=== PATIENT | female | born 1940 | race Caucasian/White ===

== ENCOUNTER 2016-10-03 12:19 | Observation (INO) ==
[2016-10-03] MEDS ORDERED: ASPIRIN 325 MG TABLET PO STA (12:37)
[2016-10-03] MEDS ORDERED: ALUM/MAG/SIMETH/LIDO VISC 1:1 30 ML BOTTLE PO STA (12:37)
[2016-10-03] MEDS ORDERED: ENOXAPARIN 100 MG/ML SYRINGE SUBCUT STA (12:37)
[2016-10-03] MEDS ORDERED: NITROGLYCERIN SL 0.4 MG TABLET SL PRN (12:37)
[2016-10-03] MEDS ORDERED: NITROGLYCERIN 2% OINT 1 INCH/GM PACK TOP STA (12:37)
--- NOTE | 2016-10-03 12:39 | EKG Report ---
Stationary ECG Study [facility] ER Test Date: 10/03/2016 12:31:41 PM Pat Name: MARIANNA MCKEON Department: Room: Gender: F Supervisory Lifeguard: Cuca Levy : 1940 Requested by: Gera Guerra Order Number: [id number] Reading MD: HANNAH HUNG Intervals [place] Rate: 61 P: 74 FL: 168 QRS: 59 QRSD: 98 T: 71 QT: 402 QTc: 405 Interpretive Statements SINUS RHYTHM Electronically Signed On 10-03-16 17:04:47 CDT by HANNAH HUNG [email or web address]
--- NOTE | 2016-10-03 12:43 | Emergency Department Note ---
Laz Duarte Hilary, am scribing for, and in the presence of, Gera Mederos MD 12: 39. Rosa M Duarte James D, MD, personally performed the services described in this documentation, ascribed by Virgen Nesbitt in my presence, and it is both accurate and complete . Arrival - Arrival Chief Complaint: Chest Pain Stated Complaint: cp,high blood pressure ED Nursing Triage Note: Pt c/o Chest pain and SOB x 2-3 wks Mode of Arrival: Ambulatory Limitations: No Limitations Source: Patient, RN Notes Reviewed Time Seen by Provider: 10/03/16 12:32 - History of Present Illness HPI Narrative: Pt is a 76 y/o white female presenting to the ED with c/o chest pain which onset 2-3 weeks ago. Pt confirms chest pain that radiates through her shoulder intermittently, SOB, SOB when she lies flat, and fatigue but denies diaphoresis , rash or nausea. Pt reports that she has had about 4 deaths in the family this recently and feels like she has "a lot of stress". No other complaints or problems stated in the ED. Onset (ago): week(s) (3) Consistency: intermittent Severity: moderate Allergies/Adverse Reactions: Allergies Allergy/AdvReac Type Severity Reaction Status Date / Time Penicillins Allergy Swelling Verified 10/03/16 12:25 of Lip/Tongue/Throat morphine AdvReac Nausea Verified 10/03/16 12:25 Home Medications: Home Medications Medication Instructions Recorded Confirmed Type Lovastatin 20 mg PO BEDTIME 10/03/16 10/03/16 History Mv-Min/FA/Vit K/Lycop/Lut/Zeax 1 each PO DAILY 10/03/16 10/03/16 History [Ocuvite Eye + Multi Tablet] Sertraline [Zoloft] 25 mg PO QAM 10/03/16 10/03/16 History Review of System - Review of System 12 point system: reviewed and no additional remarkable complaints except as stated - Review of System Constitutional: Absent: fever Respiratory: Present: respiratory distress (SOB) Cardiovascular: Present: chest pain Gastrointestinal: Absent: abdominal pain, nausea Endocrine: Present: fatigue Medical,Surgical,& Family Hx - Medical History Endocrine: History of: Dyslipidemia - Social History Smoking Status: Never smoker Exam Physical Examination: GENERAL: This is a well-nourished, well-developed in no apparent distress. VITAL SIGNS: Temperature:98.7 Pulse: 62 Respiratory: 18 Blood Pressure: 140/ 67 O2Sat: 97 HEENT: Head is normocephalic and atraumatic. Pupils are equally round and reactive to light. Extraocular movement are intact. Oropharynx is benign with moist mucous membranes. NECK: Neck is soft and supple without tenderness. There are no masses. There is no lymphadenopathy. LUNGS: Lungs are clear to auscultation bilaterally. Chest rises symmetrically. There is no chest wall tenderness. CV: Heart is regular rate and rhythm without murmurs, rubs, or gallops. ABDOMEN: Abdomen is soft, non-tender to palpation. There are no abnormal masses palpated. There is no organomegaly. Bowel sounds are present and active. SKIN: Skin is warm and dry. No rash. EXTREMITIES: Patient has full range of motion without tenderness. There is no pedal edema. NEUROLOGIC: Awake, alert, and oriented x4. Cranial nerves II through XII are grossly intact. There are no motorsensory deficits. PSYCHIATRIC: Normal affect. Normal mood. Vital Signs: Vital Signs Temperature 98.7 F 10/03/16 12:29 Pulse Rate 62 10/03/16 12:29 Respiratory Rate 18 10/03/16 12:29 Blood Pressure 140/67 10/03/16 12:29 O2 Sat by Pulse Oximetry 97 10/03/16 12:29 Course - Consultations Consultation #1: Discussed with Dr. Watson. Initial orders written for him. Patient will be admitted to his service. Care will be assumed upon arrival to the floor by Dr. Cuevas. Time: 15:10 Results - Labs CBC & BMP: 10/03/16 13:26 10/03/16 13:26 Lab Results: I have reviewed the patients labs Labs: Laboratory Tests 10/03/16 10/03/16 13:26 13:40 WBC 6.8 RBC 4.51 Hgb 13.1 Hct 39.2 MCV 86.9 L Urine Color Colorless Urine Appearance Clear Urine Urobilinogen < 2.0 H Laboratory Tests 10/03/16 13:26 Troponin I < 0.015 - EKG EKG results: interpreted by ERMD - Impressions EKG: Normal sinus rhythm with a rate of 61, normal ST-T waves, normal axis. - Diagnostic Findings Procedure: Chest x-ray: image reviewed by me (No infiltrates, no pleural effusions, no cardiomegaly) Disposition Clinical Impression: Chest pain, Dyspnea Case discussed with: patient Disposition: Still a Patient Condition: Stable Time of Disposition: 15:10
--- NOTE | 2016-10-03 13:01 | XRay Report ---
History: Chest pain Date: 10/03/2016 Study: Chest x-ray PA lateral Comparison exam: No previous There is mild cardiomegaly. There is no mediastinal mass. The pulmonary vasculature is not engorged. There is no pleural effusion. There is a 9.5 mm calcified granuloma in the left lung apex. The lungs are otherwise clear. There is mild thoracic spondylosis and suspected mild osteopenia. Surgical clips from previous cholecystectomy overlie the right upper abdomen. Impression: No acute process. Mild cardiomegaly PROCEDURE INTERPRETED AT [facility] DEPARTMENT OF RADIOLOGY Final Report Signed by: Dr. Radha Osborne
[2016-10-03] MEDS ORDERED: ENOXAPARIN 80 MG/0.8 ML SYRINGE SUBCUT ONE (13:08)
[2016-10-03] MEDS ORDERED: ALUM/MAG/SIMETH/LIDO VISC 1:1 30 ML BOTTLE PO ONE (13:08)
[2016-10-03] MEDS ORDERED: ASPIRIN 325 MG TABLET ONE (13:08)
[2016-10-03] MEDS ORDERED: NITROGLYCERIN 2% OINT 1 INCH/GM PACK TOP ONE (13:08)
[2016-10-03 13:37] LABS: Basophils # 0.1 10*3/uL (0.0-0.2); Basophils % 0.7 % (0.0-0.8); Eosinophils # 0.2 10*3/uL (0.0-0.87); Eosinophils % 2.5 % (0.00-10.9); Hematocrit 39.2 VOL% (35.7-47.0); Hemoglobin 13.1 GM/DL (12.0-16.0); Immature Granulocytes % 0.1 %; Immature Granulocytes Absolute 0.01 #; Lymphocytes # 2.2 10*3/uL (1.4-4.0); Lymphocytes % 31.9 % (21.3-54.2); Mean Corpuscular HGB Conc 33.4 GM/DL (32-36); Mean Corpuscular Hemoglobin 29 PG (27-34); Mean Corpuscular Volume 86.9 FL (87-102); Mean Platelet Volume 10.7 FL (9.6-12.0); Monocytes # 0.6 10*3/uL (0.11-0.8); Monocytes % 9.4 % (1.7-12.7); Neutrophils # 3.8 10*3/uL (1.4-7.4); Neutrophils % 55.4 % (38.7-73.9); Platelet Count 216 T/CUMM (130-400); Red Blood Count 4.51 MC/CUMM (3.8-5.5); Red Cell Distribution Width 12.4 % (9.3-17.3); White Blood Count 6.8 T/CUMM (4-12)
[2016-10-03 13:49] LABS: Apearance,Urine CLEAR (Clear); Bilirubin,Urine Negative (Negative); Blood, Urine Negative (Negative); Glucose,Urine (UA) Negative (Negative); Ketones,Urine Negative (Negative); Nitrite,Urine Negative (Negative); Protein,Urine Negative; RBC,Urine <1 /HPF (0-4); Squamous Epithelial Cell,Urine Occasional /HPF (0-10); Urine Color Colorless (Yellow); Urine Specific Gravity 1.003 (1.001-1.035); Urine Urobilinogen < 2.0 EU/DL (0.2-1.0); WBC,Urine <1 /HPF (0-6)
[2016-10-03 13:50] LABS: PT Patient Result 10.6 SECS; Partial Thromboplastin Time 25.2 SECS (0-40)
[2016-10-03 13:58] LABS: Barbiturates Screen,Urine Negative (Negative); Benzodiazepines Screen,Urine Negative (Negative); Cannabinoid Screen,Urine Negative (Negative); Opiate Screen,Urine Negative (Negative); Phencyclidine Screen,Urine Negative (Negative)
[2016-10-03 14:14] LABS: Alanine Aminotransferase 14 U/L (13-56); Albumin 3.6 G/DL (3.4-5.0); Alkaline Phosphatase 102 U/L (45-117); Aspartate Amino Transferase 18 U/L (0-37); Bilirubin,Total < 0.39 MG/DL (0.2-1.0); Blood Urea Nitrogen 19 MG/DL (7-18); Calcium 8.6 MG/DL (8.5-10.1); Glucose 92 MG/DL (74-106); Potassium 3.9 MMOL/L (3.5-5.1); Sodium 143 MMOL/L (136-145); Total Protein 6.5 G/DL (6.4-8.3)
[2016-10-03] MEDS ORDERED: ACETAMINOPHEN 325 MG TABLET PO PRN ×2 (17:14→18:44)
[2016-10-03] MEDS ORDERED: ONDANSETRON 4 MG/2 ML VIAL IV PRN ×2 (17:14→18:44)
--- NOTE | 2016-10-03 17:24 | Family Practice History&Phys ---
Assessment and Plan (1) Chest pain Status: Acute Assessment and plan: 10/03/2016: Patient will be admitted to telemetry. Cardiology will be consulted. Serial cardiac isoenzymes will be continued. I do note the patient had normal left heart catheterization approximately 11 years ago. Current Visit: Yes History of Present Illness Chief complaint: Chest pain History of present illness: Ms. Hernandez is a 76 year old female Patient 76-year-old white female presented emergency room day of admission with complaint of recurring chest pain for the past 3 weeks. Patient states is a dull pain in her left chest without radiation there is usually fairly brief and not associated with nausea, vomiting or diaphoresis. Patient states she does get short of breath and she has noticed that her stamina has been declined since her pain began. Patient states she has never had any history of coronary artery disease and did have a left heart catheterization approximately 11 years ago that was unremarkable. Patient states she is having dyspnea on exertion and states if she is having pain with exertion it improves when she stops and rests. It has awakened her from sleep at night as well. She has not had any recent surgeries and has no history of DVT or increased immobility. There is a family history of coronary artery disease in her father who of CHF but he was in his 90s. No one else in the family with heart disease that she is aware of. She does not have any fever, chills, increased cough, sputum production or increasing dyspepsia. She does take omeprazole. Home Medications Medication Instructions Recorded Confirmed Type Lovastatin 20 mg PO BEDTIME 10/03/16 10/03/16 History Mv-Min/FA/Vit K/Lycop/Lut/Zeax 1 each PO DAILY 10/03/16 10/03/16 History [Ocuvite Eye + Multi Tablet] Sertraline [Zoloft] 25 mg PO QAM 10/03/16 10/03/16 History Allergies Allergy/AdvReac Type Severity Reaction Status Date / Time Penicillins Allergy Swelling Verified 10/03/16 12:25 of Lip/Tongue/Throat morphine AdvReac Nausea Verified 10/03/16 12:25 - Constitutional Constitutional: Present: fatigue. Absent: anorexia, chills, weakness, weight gain, weight loss - EENT Eyes: Absent: blurry vision, loss of vision Ears: Absent: decreased hearing, ear pain Nose, mouth and throat: Absent: dysphagia, hoarseness, nasal congestion, sinus pressure, sore throat - Cardiovascular Cardiovascular: Present: chest pain at rest, chest pain with activity, dyspnea, dyspnea on exertion. Absent: diaphoresis, lightheadedness, orthopnea, palpitations - Respiratory Respiratory: Absent: cough, dyspnea, wheezing - Gastrointestinal Gastrointestinal: Present: dyspepsia. Absent: abdominal pain, diarrhea, dysphagia, melena, nausea, vomiting - Genitourinary Genitourinary: Absent: dysuria, hematuria, urinary frequency, urinary hesitancy - Musculoskeletal Musculoskeletal: Absent: arthralgias, back pain - Neurological Neurological: Absent: confusion, focal weakness, numbness, paresthesias - Psychiatric Psychiatric: Absent: anxiety, confusion, depression - Endocrine Endocrine: Absent: cold intolerance, fatigue, polydipsia, polyphagia - Hematologic/Lymphatic Hematologic/Lymphatic: Absent: easy bleeding, easy bruising Medical,Surgical,& Family Hx - Medical History Endocrine: History of: Dyslipidemia - Surgical History Cardiac Surgeries: Sugical HX of: Cardiac Catheterization Orthopedic Surgeries: Surgical HX of;: Orthopedic Surgery Additional Surgical History: Bladder suspension surgery - Family History Family History: Reports;: Family Heart Disease - Social History Smoking Status: Never smoker Exam - Constitutional Exam: General: Objective patient is a well-developed white female in no acute distress. Patient is able give an excellent history. HEENT: Pupils equal and reactive to light. Patent nares and airway Neck: No meningismus, adenopathy, thyromegaly. There are no auscultated carotid bruits. Cardiovascular: Regular rhythm. No murmurs or gallops Chest: Clear to auscultation without rales rhonchi wheezes. Abdomen: Soft nontender to palpation No masses, rebound, guarding or tenderness. Neuro: Cranial nerves intact and DTRs and strength symmetric in all extremities. Dermatologic: No evidence of abnormal lesions or masses. Musculoskeletal: There is no joint swelling or tenderness or deformity. Extremities: There is no calf swelling or tenderness. There is no edema. Results - Labs CBC & BMP: 10/03/16 13:26 10/03/16 13:26 Lab Results: I have reviewed the past 24 hour labs - EKG EKG results: sinus rhythm (61 bpm), no acute changes - Diagnostic Findings Procedure: Chest x-ray: report reviewed by me (Slight cardiomegaly)
[2016-10-03] MEDS ORDERED: ENOXAPARIN 40 MG/0.4 ML SYRINGE SUBCUT SCH ×2 (17:30→18:44)
--- NOTE | 2016-10-03 18:05 | Ultrasound Report ---
Venous Doppler ultrasound bilateral lower extremities Indication: Leg swelling with edema Comparison: None available Findings: No evidence of echogenic, noncompressible thrombus seen in the visualized veins of the extremities. Color Doppler venous waveform pattern is within normal limits. Impression: No evidence of deep venous thrombosis. Ultrasound images stored and captured. PROCEDURE INTERPRETED AT [facility] DEPARTMENT OF RADIOLOGY Final Report Signed by: Dr. Fly White
[2016-10-03] MEDS ORDERED: SODIUM CHLORIDE 0.9% 1,000 ML IV SCH (18:44)
[2016-10-03] MEDS: DOCUSATE SODIUM 100 MG CAPSULE PO SCH (20:44)
[2016-10-03] MEDS: SODIUM CHLORIDE 0.45% 1,000 ML IV SCH (20:45)
[2016-10-03] MEDS ORDERED: DOCUSATE SODIUM 100 MG CAPSULE PO SCH (21:00)
[2016-10-03] MEDS ORDERED: LOVASTATIN 20 MG TABLET PO SCH (21:00)
[2016-10-04] MEDS: ENOXAPARIN 60 MG/0.6 ML SYRINGE SUBCUT SCH ×2 (00:40→13:09)
[2016-10-04 05:29] LABS: Risk Ratio 2.24
--- NOTE | 2016-10-04 08:02 | Discharge Summary ---
Hospital Course - Hospital Course Hospital Course: Patient 76-year-old white female presented emergency room day of admission with persistent and recurring substernal chest pain. Patient does have a previous history of abnormal left heart catheterization but this was approximately 11 years ago. But states it is a dull pain that is intermittent but without radiation, nausea, vomiting or diaphoresis. Patient does have some shortness of breath associated with this. Patient is under a tremendous amount of stress at home with recent of family member and her has advanced dementia. Patient was admitted my services for cardiac isoenzymes remained negative. Patient is to be seen by cardiology today and we will follow their recommendations. If patient doing well from their standpoint she will be discharged later today. Diagnosis - Discharge Diagnosis (1) Chest pain Status: Acute Specialty Discharge - Follow Up or Referrals Follow up with: Esteban Brewer MD [Physician] - 10/18/16 3:10 pm (Stress test at [facility] is scheduled for October 11, 2016 at 7:45 a.m. Do not eat, drink , or take medications after midnight before your appointment. Wear comfortable shoes. If you are diabetic, may need to adjust medications the day prior to stress test. Follow up appointment with Dr. Brewer is October 18, 2016 at 3:10 p.m.) Discharge Plan - Discharge Data Disposition: Disch To Home/Self Care Condition at Discharge: Stable Discharge Diet: advance to your usual diet Activity: resume usual activities as tolerated Hygiene: no restrictions Weight Bearing at Discharge: full weight bearing Driving: no restrictions Contact your physician if you experience:: fever over 101 - Discharge Medications New Acetaminophen Tab [Tylenol Tab] 650 mg PO Q6H PRN #0 tablet PRN Reason: Fever > 100.4 Or Headache Continue Sertraline [Zoloft] 25 mg PO QAM Lovastatin 20 mg PO BEDTIME Mv-Min/FA/Vit K/Lycop/Lut/Zeax [Ocuvite Eye + Multi Tablet] 1 each PO DAILY - Follow Up or Referral Follow Up: Esteban Brewer MD [Physician] - 10/18/16 3:10 pm (Stress test at [facility] is scheduled for October 11, 2016 at 7:45 a.m. Do not eat, drink , or take medications after midnight before your appointment. Wear comfortable shoes. If you are diabetic, may need to adjust medications the day prior to stress test. Follow up appointment with Dr. Brewer is October 18, 2016 at 3:10 p.m.) - Forms/Instructions Exam - Constitutional Vitals: Period Temp Pulse Resp BP Sys/Rodriguez Pulse Ox Last 24 Hr 98 F-98.4 F 53-62 17-98 91-150/50-76 96-99 Exam: General: Objective patient is a well-developed white female in no acute distress. Patient is able give an excellent history. HEENT: Pupils equal and reactive to light. Patent nares and airway Neck: No meningismus, adenopathy, thyromegaly. There are no auscultated carotid bruits. Cardiovascular: Regular rhythm. No murmurs or gallops Chest: Clear to auscultation without rales rhonchi wheezes. Abdomen: Soft nontender to palpation No masses, rebound, guarding or tenderness. Neuro: Cranial nerves intact and DTRs and strength symmetric in all extremities. Dermatologic: No evidence of abnormal lesions or masses. Musculoskeletal: There is no joint swelling or tenderness or deformity. Extremities: There is no calf swelling or tenderness. There is no edema. Discharge Results Procedures and tests throughout hospitalization: Pending Orders 10/03/16 17:16 Urinalysis Routine Labs on day of discharge: Labs from last 24 hours 10/04/16 10/04/16 10/03/16 07:21 04:26 22:55 POC Glucose 90 Troponin I < 0.015 Triglycerides 65 Cholesterol 170 LDL Cholesterol 83.0 VLDL Cholesterol 13.0 HDL Cholesterol 76 H Heart Disease Risk Ratio 2.24 10/03/16 19:06 POC Glucose Troponin I < 0.015 Triglycerides Cholesterol LDL Cholesterol VLDL Cholesterol HDL Cholesterol Heart Disease Risk Ratio DS: Provider Date of admission: 10/03/16 15:12 Primary care physician: Bo Watson MD Attending physician on admission: Bo Watson MD Consults: 10/03/16 15:14 Consult to Physician [CONS] Routine Comment: chest pain Consulting Provider: Juanito Choudhary Person Notified: Roberta Date Notified: 10/04/16 Time Notified: 07:47 10/03/16 17:14 Consult to Case Mgmt/Social Srvs [CONS] Routine Reason for Case Mgmt/Social Srvs: Discharge Planning 10/03/16 18:44 Consult to Case Mgmt/Social Srvs [CONS] Routine Reason for Case Mgmt/Social Srvs: Discharge Planning Consult to Physician [CONS] Routine Comment: Consulting Provider: 10/03/16 19:02 Consult to Pastoral Services [CONS] Routine Comment: Pastoral Screen: Request Form Grader Operator Visit Pastoral Screen Source of Request: Patient Discharging clinician: Bo Watson MD Expected date of discharge: 10/04/16
[2016-10-04] MEDS ORDERED: MULTIVITAMIN (CENTRUM) TABLET PO SCH (09:00)
[2016-10-04] MEDS ORDERED: SERTRALINE 25 MG TABLET PO SCH (09:00)
[2016-10-04] MEDS ORDERED: PANTOPRAZOLE 40 MG TABLET PO SCH ×2 (09:00)
[2016-10-04] MEDS: SODIUM CHLORIDE 0.45% 1,000 ML IV SCH ×2 (09:21→10:01)
[2016-10-04] MEDS: DOCUSATE SODIUM 100 MG CAPSULE PO SCH (09:22)
--- NOTE | 2016-10-04 09:58 | Cardiology Consult Note ---
Assessment and Plan - Time spent with patient Time spent with patient: Greater than 30 minutes (1) Chest pain Status: Acute Assessment and plan: See plan of care listed below. Current Visit: Yes (2) Hyperlipemia Status: Chronic Assessment and plan: See plan of care listed below. Current Visit: Yes (3) Depression Status: Chronic Assessment and plan: See plan of care listed below. Current Visit: Yes (4) Dyspnea on exertion Status: Acute Assessment and plan: See plan of care listed below. Current Visit: Yes History of Present Illness - Data of Consult Patient: new to practice Consult date: 10/04/16 Requesting Physician: Bo Watson Primary care physician: Bo Watson - Consult Narrative Reason for consult: Chest pain. History of present illness: Bell Ringer: NONE ([facility] PER DR. HANKINS IN 2003) PCP: Dr. Bo Watson Ms. Hernandez is a 76 year old female who is not routinely followed by cardiology. Patient presented to the emergency department yesterday evening with complaints of chest pain 3 weeks. Patient has cardiac risk factors significant for hyperlipidemia, advanced age and sedentary lifestyle. She reports a family history of coronary artery disease, her father of CHF at age 87. She is a lifetime non-smoker. She has a past medical history of depression and GERD. She reports that she underwent heart catheterization approximately [address] Hankins. At that time, her LAD was initial have a 30% stenosis, diagonal was widely patent and circumflex and RCA had mild irregularities only. She has never undergone cardiac stress testing. Patient reports that she was in her usual state of health until approximately 3 weeks ago when she began experiencing left-sided chest pain. She describes this pain as a dull/aching chest pain that sometimes radiates to her left shoulder and is accompanied by shortness of breath. She denies nausea, vomiting , diaphoresis and heart racing/palpitations. She tells me that this pain comes and goes. This does not occur daily. However, she confirms that she usually experiences this with activity, usually lasting approximately 30 minutes and made better with rest. She also confirms that this has awoken her from sleep at times. She tells me that this does not feel like heartburn, takes omeprazole daily. Unable to identify any specific aggravating or alleviating factors. Unable to write her pain. Yesterday, she reports that her chest pain lasted longer than usual. She tells me that she usually ignores it. However, yesterday she was frighten and felt the need to be further evaluated. Her chest pain lasted a total of about an hour. It was relieved after receiving Nitro paste and ASA in the ER. She has been admitted under Dr. Bo Oropeza's service and housed on the telemetry unit. Cardiology has been consulted to further evaluate her chest pain. Of note, she also confirms a three week history of dyspnea on exertion and easy fatigability. She reports that she is usually very active. However, over the past couple of weeks she has been unable to perform her usual activities due to her dyspnea and easy fatigability. She reports having to take multiple rest breaks with activity. Patient was seen and examined on the telemetry unit. She is currently without chest pain, heaviness and tightness. Troponin has been negative 3 checks. EKG is unremarkable. Upon exam, patient's chest wall is tender to palpation. However, she tells me that this does not reproduce the same pain that she presented to the ER with. Chest x-ray did not reveal any acute cardiopulmonary process. BNP 39. D-dimer negative. Venous Doppler of lower extremity was negative for DVT. Vital signs are stable. Labs unremarkable. Will keep patient NPO at this time and discuss this further with Dr. Choudhary regarding her plan for cardiac workup. Assessment/Plan: 1. CHEST PAIN - Troponin has been negative times 3 checks. Ekg is unremarkable. Will keep patient NPO at this time and discuss this further with Dr. Choudhary regarding her plan for cardiac workup. 2. DYSPNEA ON EXERTION - I will order an echo. 2. HYPERLIPIDEMIA - Lipid panel has been reviewed. Continue current plan of care with lipid lowering agent. 3. DEPRESSION - Continue current plan of care with Zoloft. 4. GERD - Continue current plan of care with PPI. CC: Bo Watson MD - Home Medications and Allergies Home Medications: Home Medications Medication Instructions Recorded Confirmed Type Lovastatin 20 mg PO BEDTIME 10/03/16 10/03/16 History Mv-Min/FA/Vit K/Lycop/Lut/Zeax 1 each PO DAILY 10/03/16 10/03/16 History [Ocuvite Eye + Multi Tablet] Sertraline [Zoloft] 25 mg PO QAM 10/03/16 10/03/16 History Acetaminophen Tab [Tylenol Tab] 650 mg PO Q6H PRN #0 tablet 10/04/16 Rx Allergies/Adverse Reactions: Allergies Allergy/AdvReac Type Severity Reaction Status Date / Time Penicillins Allergy Swelling Verified 10/03/16 12:25 of Lip/Tongue/Throat morphine AdvReac Nausea Verified 10/03/16 12:25 - Constitutional Constitutional: Present: fatigue. Absent: chills, fever(s), frequent falls, headache(s), weight gain, weight loss - Cardiovascular Cardiovascular: Present: as per HPI, dyspnea, dyspnea on exertion, radiating jaw , neck or arm pain, other (Chest pain). Absent: claudication, diaphoresis, edema, lightheadedness, orthopnea, palpitations, PND - Respiratory Respiratory: Present: dyspnea, dyspnea on exertion. Absent: cough, hemoptysis, wheezing, snoring, pain on inspiration, change in phlegm color - Gastrointestinal Gastrointestinal: Present: heartburn. Absent: abdominal pain, change in bowel habits, coffee ground emesis, diarrhea, hematemesis, hematochezia, loose stools , melena, nausea, vomiting - Neurological Neurological: Absent: abnormal gait, abnormal speech, behavioral changes, dizziness, frequent falls, headache(s), syncope - Hematologic/Lymphatic Hematologic/Lymphatic: Absent: easy bleeding, easy bruising, lymphadenopathy Medical,Surgical,& Family Hx - Medical History Psychological: History of: Depression Endocrine: History of: Dyslipidemia Gastrointestinal: History of: GERD - Surgical History Cardiac Surgeries: Sugical HX of: Cardiac Catheterization Orthopedic Surgeries: Surgical HX of;: Orthopedic Surgery - Family History Family History: Reports;: Family Heart Disease (father) - Social History Smoking Status: Never smoker Frequency of Alcohol Use: None Type of Drug Use: None Physical Examination Vital Signs Temp Pulse Resp BP Pulse Ox 98.7 F 62 18 140/67 97 10/03/16 12:29 10/03/16 12:29 10/03/16 12:29 10/03/16 12:29 10/03/16 12:29 General: Present: Appears Well, No Apparent Distress Neck: Present: Supple Neck, Midline Trachea, No JVD/HJR, No Masses, No Bruit Cardiac: Present: Reg Rate and Rhythm, Regular Rate, Regular Rhythm, S1/S2 Lungs: Present: Normal Exam, Clear Ascult./Percussion, Normal Breath Sounds, No Wheeze, Rales, Rhonchi Abdomen: Present: Soft, Active Bowel Sounds, No Masses, Non-Tender Skin: Present: Clear. Absent: Rash, Suspicious Lesions, Ulceration Extremities: Present: Normal Gait, No Clubbing, No Cyanosis, No Edema, Normal Upper Extr. Pulses, Normal Lower Extr. Pulses Result/EKG - Labs CBC & BMP: 10/03/16 13:26 10/03/16 13:26 Lab Results: I have reviewed the past 24 hour labs Labs: Laboratory Results - last 24 hr 10/03/16 10/03/16 10/04/16 19:06 22:55 04:26 POC Glucose Troponin I < 0.015 < 0.015 Triglycerides 65 Cholesterol 170 LDL Cholesterol 83.0 VLDL Cholesterol 13.0 HDL Cholesterol 76 H Heart Disease Risk Ratio 2.24 10/04/16 07:21 POC Glucose 90 Troponin I Triglycerides Cholesterol LDL Cholesterol VLDL Cholesterol HDL Cholesterol Heart Disease Risk Ratio - EKG EKG results: interpreted by me, sinus rhythm
[2016-10-04] MEDS ORDERED: ASPIRIN EC 81 MG TABLET PO SCH (15:00)
[2016-10-04 15:50] VITALS: BP 120/64
--- NOTE | 2016-10-04 17:18 | ECHO Report ---
David Fallon Exam Date: 10/04/2016 11:54 Referring Physician: Technologist: Purnima Pagan Age: 76 Ht (in): 63 Wt (lb): 165 Gender: F Exam Location: [facility] Echo Indications: Chest pain, dyspnea, hyperlipemia, BELLO BP: 107 / 75 HR: 55 Rhythm: Bradycardia Technical Quality: Fair IMPRESSIONS Normal left ventricular size, systolic function and wall thickness, with no regional wall motion abnormalities. EF 55 %. Grade I/IV diastolic dysfunction (abnormal relaxation filling pattern), normal to mildly elevated filling pressures. Normal right ventricular size. The right atrium is mildly enlarged. The left atrium is mildly enlarged. Mildly thickened mitral valve. Mitral annular calcification. Trace mitral valve regurgitation. Aortic valve sclerosis. Trace aortic valve regurgitation. Mild tricuspid valve regurgitation. [id number]. No pulmonary valve regurgitation. No pericardial effusion. Normal size aortic root and proximal ascending aorta. MEASUREMENTS (Male / Female) Normal Values 2D ECHO LV Diastolic Diameter PLAX 4.5 cm 4.2 - 5.9 / 3.9 - 5.3 cm LV Systolic Diameter PLAX 2.7 cm LV Fractional Shortening PLAX 40.6 % IVS Diastolic Thickness 1.3 cm 0.6 - 1.0 / 0.6 - 0.9 cm LVPW Diastolic Thickness 1.0 cm 0.6 - 1.0 / 0.6 - 0.9 cm RV Internal Dim ED PLAX 2.2 cm Aortic Root Diameter 2.5 cm LA Systolic Diameter LX 3.2 cm 3.0 - 4.0 / 2.7 - 3.8 cm DOPPLER TR Peak Velocity 227.0 cm/s TR Peak Gradient 20.6 mmHg FINDINGS Left Ventricle Normal left ventricular size, systolic function and wall thickness, with no regional wall motion abnormalities. EF 55 %. Grade I/IV diastolic dysfunction (abnormal relaxation filling pattern), normal to mildly elevated filling pressures. Right Ventricle Normal right ventricular size. Right Atrium The right atrium is mildly enlarged. Left Atrium The left atrium is mildly enlarged. Mitral Valve Mildly thickened mitral valve. Mitral annular calcification. Trace mitral valve regurgitation. Aortic Valve Aortic valve sclerosis. Trace aortic valve regurgitation. Tricuspid Valve Morphologically normal tricuspid valve. Mild tricuspid valve regurgitation. [id number]. Pulmonic Valve Pulmonic valve not well visualized. No pulmonary valve regurgitation. Pericardium No pericardial effusion. Aorta Normal size aortic root and proximal ascending aorta. Connor Plavac (Electronically Signed) Final Date: 04 Oct 2016 17:17
[2016-10-04] MEDS ORDERED: ISOSORBIDE MONONITRATE 30 MG TABLET PO SCH (21:00)
== END 2016-10-04 17:56 | disposition home or self-care (01) ==
LOC: N.ED 12:19 → N.EDINP 12:19 → N.TELES 18:48
PROVIDERS: ADMIT Family Medicine; ATTEND Family Medicine

== ENCOUNTER 2019-01-22 05:29 | Inpatient (IN) ==
[2019-01-22] MEDS ORDERED: VANCOMYCIN 1,000 MG VIAL ONE (05:49)
[2019-01-22] MEDS ORDERED: CLINDAMYCIN INJ 50 ML IV ONE (05:49)
[2019-01-22] MEDS: LACTATED RINGERS 1,000 ML IV SCH ×2 (06:25→10:40)
[2019-01-22] MEDS ORDERED: PROPOFOL 1,000 MG/100 ML BOTTLE IV ONE (06:34)
[2019-01-22] MEDS ORDERED: BUPIVACAINE 0.5% 50 ML VIAL ONE (06:34)
[2019-01-22] MEDS ORDERED: DEXAMETHASONE 4 MG/1 ML VIAL ONE (06:34)
[2019-01-22] MEDS ORDERED: VANCOMYCIN INJ 1,000 MG in SODIUM CHLORIDE 0.9% 250 ML IV ONE (07:00)
[2019-01-22] MEDS ORDERED: CLINDAMYCIN INJ 900 MG in PREMIX 1 EACH IV ONE (07:00)
[2019-01-22] MEDS ORDERED: BUPIVACAINE SPINAL 0.75% 2 ML AMP SPINAL ONE (07:01)
[2019-01-22] MEDS ORDERED: MAGNESIUM HYDROXIDE SUSP 30 ML UDCUP PO PRN (07:03)
[2019-01-22] MEDS ORDERED: diphenhydrAMINE CAP 25 MG CAPSULE PO PRN (07:03)
[2019-01-22] MEDS ORDERED: TEMAZEPAM 7.5 MG CAPSULE PO PRN (07:03)
[2019-01-22] MEDS ORDERED: LACTULOSE 20 GM/30 ML UDCUP PO PRN (07:03)
[2019-01-22] MEDS ORDERED: PROMETHAZINE 25 MG/1 ML VIAL IM PRN (07:03)
[2019-01-22] MEDS ORDERED: BISACODYL 10 MG SUPP RECTAL PRN (07:03)
[2019-01-22] MEDS ORDERED: MULTIVITAMIN (OCUVITE) TABLET PO SCH (09:00)
[2019-01-22] MEDS ORDERED: [UNRECOGNIZED DRUG - OTHER] PO SCH (09:00)
[2019-01-22] MEDS ORDERED: VIT C E ZN COPPR LUTEIN ZEAXAN PO SCH (09:00)
[2019-01-22] MEDS ORDERED: MIDAZOLAM 2 MG/2 ML VIAL ONE (09:03)
[2019-01-22] MEDS ORDERED: fentaNYL 100 MCG/2 ML VIAL ONE (09:03)
[2019-01-22] MEDS ORDERED: TRANEXAMIC ACID 1,000 MG/10 ML VIAL ONE (09:04)
[2019-01-22] MEDS ORDERED: SODIUM CHLORIDE 0.9% 100 ML IV ONE (09:04)
[2019-01-22] MEDS ORDERED: GLYCOPYRROLATE 0.4 MG/2 ML VIAL ONE (09:04)
[2019-01-22] MEDS ORDERED: ePHEDrine 50 MG/ML AMP ONE (09:04)
[2019-01-22] MEDS: MEPERIDINE 25 MG/1 ML VIAL IV PRN ×2 (11:35→21:20)
[2019-01-22] MEDS: ONDANSETRON 4 MG/2 ML VIAL IV PRN (11:35)
[2019-01-22] MEDS: CLINDAMYCIN INJ 900 MG in PREMIX 1 EACH IV SCH ×2 (13:34→21:12)
[2019-01-22] MEDS: DOCUSATE SODIUM 100 MG CAPSULE PO SCH ×2 (13:40→21:13)
[2019-01-22] MEDS: PANTOPRAZOLE 40 MG TABLET PO SCH (13:41)
[2019-01-22] MEDS: SERTRALINE 25 MG TABLET PO SCH (13:41)
[2019-01-22] MEDS: MONTELUKAST 10 MG TABLET PO SCH (21:12)
[2019-01-22] MEDS: MULTIVITAMIN (OCUVITE) TABLET PO SCH (21:12)
[2019-01-22] MEDS: CALCIUM (CARBONATE) 600 MG TABLET PO SCH (21:13)
[2019-01-22] MEDS: SIMVASTATIN 10 MG TABLET PO SCH (21:13)
[2019-01-22] MEDS: FONDAPARINUX 2.5 MG/0.5 ML SYRINGE SUBCUT SCH (21:13)
[2019-01-22] MEDS: MAGNESIUM OXIDE 400 MG TABLET PO SCH (21:13)
[2019-01-23 05:34] LABS: Basophils % 0.3 % (0.0-0.8); Eosinophils % 0.2 % (0.00-10.9); Hematocrit 32.2 VOL% (35.7-47.0); Hemoglobin 10.3 GM/DL (12.0-16.0); Immature Granulocytes % 0.4 %; Immature Granulocytes Absolute 0.04 #; Lymphocytes # 1.3 10*3/uL (1.4-4.0); Lymphocytes % 14.2 % (21.3-54.2); Mean Platelet Volume 11.4 FL (9.6-12.0); Monocytes % 10.9 % (1.7-12.7); Platelet Count 152 T/CUMM (130-400); Red Blood Count 3.54 MC/CUMM (3.8-5.5); Red Cell Distribution Width 13.1 % (9.3-17.3); White Blood Count 9.2 T/CUMM (4-12)
[2019-01-23 06:01] LABS: Calcium 8.6 MG/DL (8.5-10.1)
[2019-01-23] MEDS: DOCUSATE SODIUM 100 MG CAPSULE PO SCH ×2 (08:36→20:48)
[2019-01-23] MEDS: SERTRALINE 25 MG TABLET PO SCH (08:36)
[2019-01-23] MEDS: MULTIVITAMIN (OCUVITE) TABLET PO SCH ×2 (08:36→20:47)
[2019-01-23] MEDS: PANTOPRAZOLE 40 MG TABLET PO SCH (08:36)
[2019-01-23] MEDS: SIMVASTATIN 10 MG TABLET PO SCH (20:47)
[2019-01-23] MEDS: CALCIUM (CARBONATE) 600 MG TABLET PO SCH (20:47)
[2019-01-23] MEDS: MONTELUKAST 10 MG TABLET PO SCH (20:47)
[2019-01-23] MEDS: MAGNESIUM OXIDE 400 MG TABLET PO SCH (20:47)
[2019-01-23] MEDS: FONDAPARINUX 2.5 MG/0.5 ML SYRINGE SUBCUT SCH (20:48)
[2019-01-24] MEDS: ONDANSETRON 4 MG/2 ML VIAL IV PRN (05:05)
[2019-01-24] MEDS: MULTIVITAMIN (OCUVITE) TABLET PO SCH ×2 (08:39→20:10)
[2019-01-24] MEDS: PANTOPRAZOLE 40 MG TABLET PO SCH (08:39)
[2019-01-24] MEDS: SERTRALINE 25 MG TABLET PO SCH (08:39)
[2019-01-24] MEDS: DOCUSATE SODIUM 100 MG CAPSULE PO SCH ×2 (08:39→20:10)
[2019-01-24] MEDS: FONDAPARINUX 2.5 MG/0.5 ML SYRINGE SUBCUT SCH (20:09)
[2019-01-24] MEDS: SIMVASTATIN 10 MG TABLET PO SCH (20:10)
[2019-01-24] MEDS: MONTELUKAST 10 MG TABLET PO SCH (20:10)
[2019-01-24] MEDS: MAGNESIUM OXIDE 400 MG TABLET PO SCH (20:10)
[2019-01-24] MEDS: CALCIUM (CARBONATE) 600 MG TABLET PO SCH (20:10)
[2019-01-25] MEDS: DOCUSATE SODIUM 100 MG CAPSULE PO SCH (09:39)
[2019-01-25] MEDS: PANTOPRAZOLE 40 MG TABLET PO SCH (09:40)
[2019-01-25] MEDS: SERTRALINE 25 MG TABLET PO SCH (09:40)
[2019-01-25] MEDS: MULTIVITAMIN (OCUVITE) TABLET PO SCH (09:40)
[2019-01-25 11:46] VITALS: BP 124/62
== END 2019-01-25 13:38 | disposition home health service (06) | DRG 470 ==
LOC: N.PREADM 05:29 → N.SDSINP 05:31 → N.3E 10:11
PROVIDERS: ADMIT Orthopaedic Surgery; ATTEND Orthopaedic Surgery